=== PATIENT | male | born 1950 | race Two or more races ===

== ENCOUNTER 2019-07-19 07:21 | Inpatient (IN) | payer MEDICARE ==
[2019-07-19 07:39] LABS: HCT 42.8 % (39.0-53.0); HGB 14.2 gm/dL (13.0-17.5); MCH 31.5 pg (25.0-35.0); MCHC 33.2 g/dL (31.0-37.0); MCV 94.8 fL (80.0-100.0); Mean Platelet Volume 9.9; Platelet Count 179 k/uL (150-450); RBC 4.52 m/uL (4.30-5.90); WBC 5.4 k/uL (3.8-10.6)
--- NOTE | 2019-07-19 07:41 | ED ---
General Adult HPI - General Stated complaint: Stemi Time Seen by Provider: 07/19/19 07:21 Source: patient, RN notes reviewed, old records reviewed - History of Present Illness Initial comments: This is a 69-year-old male who presents emergency department after having gone to [facility]. They Transferred the patient to us because they were concerned that the patient was having a heart attack. Patient states the pain started about 4:30 this morning and he arrived at [facility] about 6:00 in the morning. Patient does state he has had intermittent chest pain for a week. Patient states he has no medical problems. Patient states the pain started in his chest and he was mildly short of breath he denied any radiation of the pain to me. Patient denied any nausea or diaphoresis. Patient is extremely anxious and tearful and it is somewhat difficult to get a history because he is upset. Patient does deny any abdominal pain. Patient denies headache patient denies lightheadedness or dizziness. Review of Systems ROS Statement: Those systems with pertinent positive or pertinent negative responses have been documented in the HPI. ROS Other: All systems not noted in ROS Statement are negative. General Exam - General Exam Comments Initial Comments: GENERAL: Patient is well-developed and well-nourished. Patient is nontoxic and well- hydrated and is in mild distress. ENT: Neck is soft and supple. No significant lymphadenopathy is noted. Oropharynx is clear. Moist mucous membranes. Neck has full range of motion without eliciting any pain. EYES: The sclera were anicteric and conjunctiva were pink and moist. Extraocular movements were intact and pupils were equal round and reactive to light. Eyelids were unremarkable. PULMONARY: Unlabored respirations. Good breath sounds bilaterally. No audible rales rhonchi or wheezing was noted. CARDIOVASCULAR: There is a regular rate and rhythm without any murmurs gallops or rubs. ABDOMEN: Soft and nontender with normal bowel sounds. SKIN: Skin is clear with no lesions or rashes and otherwise unremarkable. NEUROLOGIC: Patient is alert and oriented x3. Cranial nerves II through XII are grossly intact. Motor and sensory are also intact. Normal speech, volume and content. Symmetrical smile. MUSCULOSKELETAL: Normal extremities with adequate strength and full range of motion. LYMPHATICS: No significant lymphadenopathy is noted PSYCHIATRIC: Normal psychiatric evaluation. Medical Decision Making - Medical Decision Making EKG shows normal sinus rhythm at 70 bpm HI interval 242 QRS is 76 QT interval 370 QTC is 408. Patient's EKG shows ST segment elevation in V1 and V2 V3 V4. Patient has what appears to be a STEMI. I called a STEMI overhead and Dr. Link came down to see the patient. Patient already received aspirin was on a nitro drip and on heparin. Patient was still having some pain. I spoke with Dr. Nolen and she agreed to accept the patient and the patient was taken to the [facility]. Disposition Clinical Impression: STEMI (ST elevation myocardial infarction) Disposition: ADMITTED IP TO THIS HOSP Is patient prescribed a controlled substance at d/c from ED?: No Referrals: Mazin Pino MD [Primary Care Provider] - 1-2 days Time of Disposition: 07:43
[2019-07-19] MEDS ORDERED: HYDROmorphone 1 MG/ML 1 ML SYRINGE IVP ONE (07:45)
[2019-07-19] MEDS ORDERED: SODIUM CHLORIDE 0.9% 1,000 ML IV ONE (07:45)
[2019-07-19] MEDS ORDERED: NITROGLYCERIN-D5W PMX 50 MG in DEXTROSE/WATER 1 250ML.BAG IV ONE (07:45)
[2019-07-19 07:47] LABS: ALT 10 U/L (4-49); AST 23 U/L (17-59); African American GFR (CKD) >90 (>60 ml/min/1.73 sqM); Albumin 3.9 g/dL (3.5-5.0); Alkaline Phosphatase 116 U/L (38-126); Anion Gap 5 mmol/L; Blood Urea Nitrogen 15 mg/dL (9-20); Carbon Dioxide 27 mmol/L (22-30); Chloride 107 mmol/L (98-107); Glucose 89 mg/dL (74-99); Non-African American GFR(CKD) 86 (>60 ml/min/1.73 sqM); Potassium 4.3 mmol/L (3.5-5.1); Sodium 139 mmol/L (137-145); Total Bilirubin 0.3 mg/dL (0.2-1.3); Total Protein 7.1 g/dL (6.3-8.2)
[2019-07-19] MEDS ORDERED: MIDAZOLAM 2 MG/2 ML VIAL IV ONE (07:47)
[2019-07-19] MEDS ORDERED: LIDOCAINE 1% INJ 10MG/ML (20 ML MDV) SQ ONE (07:47)
[2019-07-19] MEDS ORDERED: BIVALIRUDIN BOLUS 250 MG/50 ML IV ONE (07:58)
[2019-07-19] MEDS ORDERED: BIVALIRUDIN 250 MG in SODIUM CHLORIDE 0.9% 50 ML IV ONE (08:00)
[2019-07-19] MEDS ORDERED: TICAGRELOR 90 MG TAB PO ONE (08:00)
[2019-07-19 08:07] LABS: INR 0.9 (<1.2); Prothrombin Time 9.6 sec (9.0-12.0)
[2019-07-19 08:10] LABS: Partial Thromboplastin Time 127.8 sec (22.0-30.0)
[2019-07-19 08:12] LABS: Creatine Kinase MB 2.1 ng/mL (0.0-2.4)
[2019-07-19] MEDS ORDERED: IOPAMIDOL-370 125ML BTL INJ ONE (08:14)
[2019-07-19] MEDS ORDERED: NITROGLYCERIN 1000MCG/10ML SYRINGE INTRACORON ONE (08:18)
[2019-07-19 08:28] LABS: Troponin I 0.234 ng/mL (0.000-0.034)
[2019-07-19] MEDS ORDERED: IOPAMIDOL-370 100ML BTL INJ ONE (08:31)
[2019-07-19] MEDS ORDERED: NITROGLYCERIN SL TABS 0.4 MG TAB SUBLINGUAL PRN (08:46)
[2019-07-19] MEDS ORDERED: ATROPINE SULFATE 0.1 MG/ML 10ML SYRINGE IV PRN (08:46)
[2019-07-19] MEDS ORDERED: RX INFO: IV CONTRAST WAS GIVEN 1 EACH MISC MISCELLANE PRN (08:46)
[2019-07-19] MEDS ORDERED: MAG HYDROX/AL HYDROX/SIMETH 30 ML CUP PO PRN (08:46)
[2019-07-19] MEDS ORDERED: ZOLPIDEM 5 MG TAB PO PRN (08:46)
[2019-07-19] MEDS ORDERED: SODIUM CHLORIDE 0.9% 1,000 ML IV SCH (09:00)
[2019-07-19 09:16] LABS: Glucose,Whole Blood 130 mg/dL (75-99)
[2019-07-19] MEDS: ASPIRIN 81 MG PO SCH (09:32)
[2019-07-19] MEDS: LISINOPRIL 2.5 MG TAB PO SCH ×2 (09:32→19:45)
[2019-07-19] MEDS: METOPROLOL TARTRATE 25 MG TAB PO SCH ×2 (09:32→19:45)
[2019-07-19] MEDS: SPIRONOLACTONE 25 MG TAB PO SCH (09:32)
[2019-07-19 10:06] VITALS: BMI 25.7
--- NOTE | 2019-07-19 10:16 | CONS ---
CONSULTATION CHIEF COMPLAINT: Chest pain. Junior is a 69-year-old gentleman with history of hypertension that was not treated and smoking, who presented to [facility] Emergency Room with chest pain that started around 4 30 this morning. He was severely hypertensive and had EKG changes of acute myocardial ischemia, was transferred to the emergency room at [facility] where I evaluated him. His EKG here showed acute ST-segment elevation in the precordial leads suggestive of an acute anterior wall myocardial infarction. I advised the patient to undergo emergent cardiac catheterization with a view to performing angioplasty. The patient was explained of risks, benefits and alternatives. PAST MEDICAL HISTORY: Significant for hypertension. MEDICATIONS: None. ALLERGIES: None. FAMILY HISTORY: He denies any. SOCIAL HISTORY: Significant for smoking, there is no history of EtOH abuse or drug abuse. REVIEW OF SYSTEMS: HEENT: Unremarkable. CARDIAC: As described above. RESPIRATORY: As described above. GI: Negative. GENITOURINARY: Negative. ALLERGY/IMMUNOLOGY: Negative. SKIN: Negative. MUSCULOSKELETAL: Negative. ENDOCRINE: Negative. ONCOLOGICAL: Negative [facility] PHYSICIAN: Negative. PHYSICAL EXAM: Patient appears hemodynamically stable. He is anxious. Blood pressure is elevated at 150/110, heart rate is 89 beats per minute. There is no jugular venous distention. Carotid upstroke is normal. There is no bruit. Chest exam reveals good air entry bilaterally. Heart exam reveals first and second heart sounds. No gallop. No murmur. No rub. Abdomen is soft, nontender. Exam of extremities did not reveal any edema. Peripheral pulses are felt. EKG shows acute ST-segment elevation in the anterior leads. LABORATORY DATA: Labs are pending at this time. ASSESSMENT: 1. Acute anterior wall myocardial infarction. 2. Severe uncontrolled hypertension. PLAN: Patient will undergo emergent cardiac cath with a view to performing angioplasty. CARDIAC CATHETERIZATION: INDICATION: Acute anterior wall myocardial infarction. PROCEDURE NOTE: After obtaining informed consent, left heart catheterization and coronary angiogram were performed via the right femoral artery using standard Domenico catheters. Patient tolerated the procedure well without any obvious immediate complication. FINDINGS: HEMODYNAMICS: Central aortic pressure is 150/100. Left ventricular hemodynamics could be obtained after the angioplasty. ANGIOGRAPHIC DATA: LEFT MAIN CORONARY ARTERY: Left main coronary artery appears calcified. There is a mild atherosclerotic plaque in the ostial portion of the left main, divides into left anterior descending coronary artery and circumflex coronary artery. LEFT ANTERIOR DESCENDING CORONARY ARTERY: LAD is totally occluded in its midportion. There is a large diagonal branch, circumflex coronary artery is a dominant vessel. There is a moderate atherosclerotic plaque in its proximal portion. Right coronary artery is a small caliber nondominant vessel that shows a mild atherosclerotic plaque in the proximal portion. CONCLUSION: Acute occlusion of the mid LAD. PLAN: Patient will undergo angioplasty of the same. MMODL / IJN: [id number] /
--- NOTE | 2019-07-19 10:22 | LTR ---
DATE OF SERVICE: 07/19/2019 RE: Junior Casillas Dear Pat: I performed cardiac catheterization on Junior Casillas. A detailed catheterization note was sent for your personal records. In brief, Junior is a 69-year-old gentleman with you as his primary care physician, came to the hospital with acute anterior wall myocardial infarction and underwent emergent cardiac catheterization that revealed an acutely occluded LAD. He will undergo angioplasty of the same. Thank you giving me the privilege of taking care of this pleasant gentleman. Sincerely, MD JHON Rogers / NIRANJAN: [id number] /
--- NOTE | 2019-07-19 10:30 | PTCA ---
PERCUTANEOUSTRANS CORORONARY ANGIOGRAPHY Mr. Casillas is a 69-year-old male with history of chronic tobacco use, who presented to [facility] with an acute anterior wall myocardial infarction. He was evaluated by Dr. Schofield and underwent cardiac catheterization that revealed a totally occluded mid LAD. In view of that, recommendation made regarding angioplasty and stenting. The procedures, risks, and complication were discussed with the patient who is in full understanding and agreement. PROCEDURE: A 6-Macanese FR4 guiding catheter introduced into the system after cannulating the left main. A 0.014 balanced medium weight J-wire was advanced across the lesion, positioned distally, then a 2.5 x 12 mm Trek balloon was advanced and multiple inflation at 8 atmospheres were done. From that, the balloon was removed and a 3.5 x 38 mm Xience Guillermina stent was deployed, postdilated at 16 atmospheres. Following that, the balloon was removed and a 0.014 BMW wire was introduced in the diagonal branch. That wire was subsequently removed and a 0.014 Whisper J-wire was advanced into the diagonal branch. Subsequently, a 2.5 x 12 mm Trek balloon was advanced and two inflations at the bifurcation of the diagonal branch through the diagonal branch were done at a maximum of 8 atmospheres. Following that, the balloon was removed and a 4.0 x 12 mm NC Trek balloon was advanced in the proximal segment of the stent and 2 inflations at 12 atmospheres was done. After the last inflation, after appropriate wait, the balloon and the guidewire were withdrawn back in the guiding catheter. Images were obtained and repeated. Those images reveal stable successful stenting. At that point, the guiding catheter, the balloon and guidewire were removed and a 6-Macanese tight pigtail catheter introduced into the left ventricle and pressures were calculated. Following that, catheter and sheath were removed. Hemostasis was obtained with deployment of an Angio-Seal. There was no immediate complication. Patient was returned to his room in stable condition. Of note, the patient had almost total resolution of his chest discomfort with improvement in his ST-segment elevation. He received Angiomax per protocol as well as oral loading dose of Brilinta. RESULTS: Successful stenting of the mid LAD with reduction of stenosis from 100% to 0%. RECOMMENDATION: Patient will be continued on aspirin, Brilinta, beta chris, MYA inhibitors and statin. The importance of dual antiplatelet treatment were discussed with the patient and his family and they are in full understanding and agreement. Duration of procedure is 30 minutes. MMODL / IJN: [id number] /
[2019-07-19 11:54] LABS: Cholesterol 183 mg/dL (<200); HDL Cholesterol 50 mg/dL (40-60); LDL Cholesterol,Calculated 95 mg/dL (0-99); Triglycerides 191 mg/dL (<150)
[2019-07-19] MEDS: ATORVASTATIN 80 MG TAB PO SCH (19:44)
[2019-07-19] MEDS: TICAGRELOR 90 MG TAB PO SCH (19:45)
--- NOTE | 2019-07-19 22:04 | P.HPIM ---
History of Present Illness H&P Date: 07/19/19 Chief Complaint: Acute ST RI, CAD post PCI and stent placement, hypertension, hyperlipidemia 69-year-old male one of Dr. otto patient with past medical history of prostate cancer elevated blood pressure and chronic smoking who apparently has not felt well the last 2 days presented to the emergency department at 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 He ended up coming to [facility] department mildly elevated troponin was found his EKG showed ST elevation patient was transfer from the emergency department [facility] to the emergency department at [facility] for ST RI protocol was established patient was taken to the electrical laboratory technician had the heart cath with Dr. Link who found subtotal occlusion of the LAD ended up calling Dr. Lucero who performed successful PCI and stent placement of the LAD and start the patient on aspirin, purulent, beta chris, MYA inhibitor and high dose of statin patient was admitted to the ICU after his procedure. Review of Systems CONSTITUTIONAL: Well-developed no acute respiratory distress. EYES: No icterus sclerae, no conjunctivitis. EARS, NOSE, MOUTH, THROAT, and FACE: No sore throat, lymphadenopathy, carotid bruits or deformity. RESPIRATORY: Slight shortness of breath no cough wheezes. CARDIOVASCULAR: Positive chest pain and angina with mild orthopnea and PND. GASTROINTESTINAL: No Abd pain, Nausea or vomiting, no Diarrhea or constipation, No GI Bleed, no distention or masses. GENITOURINARY: Negative for Hematuria or UTI, no kidney stones. INTEGUMENT/BREAST: Negative for any muscular injury with mild osteoarthritis.. HEMATOLOGIC/LYMPHATIC: Negative for bleed or purpura. MUSCULOSKELTAL: Negative for Myalgia or arthralgia. NEURLOGICAL: No LOC, Sz or syncope, blurred vision dizziness or abnormality.. BEHAVIORAL/PSYCH: Negative. ENDOCRINE: Negative. Past Medical History Past Medical History: Cancer Additional Past Medical History / Comment(s): prostate cancer approx 2009 History of Any Multi-Drug Resistant Organisms: None Reported Past Surgical History: No Surgical Hx Reported Past Anesthesia/Blood Transfusion Reactions: No Reported Reaction Past Psychological History: No Psychological Hx Reported Smoking Status: Current every day smoker Past Alcohol Use History: None Reported Past Drug Use History: None Reported - Past Family History Mother Family Medical History: Diabetes Mellitus Father History Unknown: Yes Medications and Allergies Home Medications Medication Instructions Recorded Confirmed Type Albuterol Inhaler [Ventolin Hfa 2 puff INHALATION RT-QID PRN 07/19/19 07/19/19 History Inhaler] Ticagrelor [Brilinta] 90 mg PO BID #60 tab 07/19/19 Rx Allergies Allergy/AdvReac Type Severity Reaction Status Date / Time No Known Allergies Allergy Verified 07/19/19 09:23 Physical Exam Vitals: Vital Signs Temp Pulse Pulse Resp BP Pulse Ox 07/19/19 19:00 72 27 H 129/82 96 07/19/19 18:00 65 23 126/91 95 07/19/19 17:00 66 13 113/74 95 07/19/19 16:00 97.7 F 58 L 23 122/79 94 L 07/19/19 15:35 17 07/19/19 15:00 62 25 H 105/62 95 07/19/19 14:00 61 19 129/80 93 L 07/19/19 13:10 56 L 15 129/80 95 07/19/19 13:00 57 L 12 132/92 96 07/19/19 12:50 56 L 11 L 132/92 95 07/19/19 12:40 61 16 132/92 97 07/19/19 12:31 97.7 F 15 07/19/19 12:30 26 H 132/92 95 07/19/19 12:20 71 17 132/92 96 07/19/19 12:10 59 L 27 H 132/92 97 07/19/19 12:00 97.7 F 57 L 19 141/93 96 07/19/19 11:50 71 20 141/93 95 07/19/19 11:40 53 L 3 L 141/93 97 07/19/19 11:30 61 6 L 141/93 97 07/19/19 11:20 61 22 141/93 97 07/19/19 11:10 61 29 H 141/93 97 07/19/19 11:00 61 7 L 144/92 98 07/19/19 10:50 64 18 144/92 97 07/19/19 10:40 56 L 8 L 144/92 98 07/19/19 10:30 55 L 12 144/92 97 07/19/19 10:20 62 16 144/92 97 07/19/19 10:10 68 27 H 144/92 98 07/19/19 10:00 63 20 150/98 96 07/19/19 09:50 65 14 150/98 97 07/19/19 09:40 60 10 L 150/98 97 07/19/19 09:30 68 12 150/98 94 L 07/19/19 09:20 60 11 L 150/98 97 07/19/19 09:15 24 97 07/19/19 07:34 75 16 161/99 99 07/19/19 07:32 72 07/19/19 07:28 97.0 F L 71 20 158/106 99 Intake and Output 07/19/19 07/19/19 07/19/19 06:59 14:59 22:59 Intake Total 1125 550 Output Total 200 480 Balance 925 70 Intake: IV 125 Intake, IV Titration 300 200 Amount Sodium Chloride 0.9% 1, 300 200 000 ml @ 100 mls/hr IV . [facility]H [facility] Rx#:[id number] Oral 700 350 Blood Product 0 Output: Urine 200 480 Other: # Voids 1 1 Weight 70.307 kg General Appearance: Alert, cooperative, no distress, appears stated age. Neck HEENT: Supple, no lymphadenopathy, no thyroid enlargement, no carotid bruits. Lungs: Clear to auscultation without crackles or wheezes no rhonchi, no deformity. Chest Wall: Chest wall normal expansion with deep inspiration no tenderness and no deformity was found on exam, no costochondral pain or discomfort. Heart: Regular rate and rhythm, S1, S2 normal, no murmur, rub or gallop. Back: Symmetric, no curvature, ROM normal, no CVA tenderness. Abdomen: Soft, non-tender, bowel sounds active all four quadrants, no masses, no organomegaly. Extremities: Extremities normal, atraumatic, no cyanosis or edema. Pulses: 2+ and symmetric. Skin: Skin color, texture, tugor normal, no rashes or lesions. Neurologic: Alert oriented x3 cranial nerves II through XII intact, no motor deficit, no abnormal balance or gait. Results CBC & Chem 7: 07/19/19 07:26 07/19/19 07:26 Labs: Abnormal Lab Results - Last 24 Hours (Table) 07/19/19 07/19/19 07/19/19 Range/Units 07:26 07:26 07:26 APTT 127.8 H* (22.0-30.0) sec POC Glucose (mg/dL) (75-99) mg/dL Troponin I 0.234 H* (0.000-0.034) ng/mL Triglycerides 191 H (<150) mg/dL 07/19/19 07/19/19 07/19/19 Range/Units 09:14 13:16 18:59 APTT (22.0-30.0) sec POC Glucose (mg/dL) 130 H (75-99) mg/dL Troponin I 40.100 H* 27.500 H* (0.000-0.034) ng/mL Triglycerides (<150) mg/dL Thrombosis Risk Factor Assmnt - DVT/VTE Prophylaxis DVT/VTE Prophylaxis: Mechanical Prophylaxis ordered - Choose All That Apply Any of the Below Risk Factors Present?: Yes Each Factor Represents 1 point: Acute RI, Medical pt on bed rest Each Risk Factor Represents 2 Points: Age 61-74 years Thrombosis Risk Factor Assessment Total Risk Factor Score: 4 Thrombosis Risk Factor Assessment Level: Moderate Risk Assessment and Plan Assessment: 1 acute anterior wall myocardial infarction ST elevation: Patient was hospitalized was giving nitro aspirin antiplatelet agent ended up going to the electrical laboratory technician had angioplasty of the LAD. 2 post PCI and stent placement of the LAD successful procedure done patient is doing well and more stable. 3 severe uncontrolled hypertension: Patient was started on beta chris and MYA inhibitor we will add product like Norvasc as needed for systolic above 160/90. 4 history of reactive airway/asthma: Remain on Ventolin on as needed basis. 5 history of prostate cancer: Post prostatectomy has been in remission and doing well. 6 chronic history of nicotine dependency and smoking: Patient will be on nicotine patch for now. 7 hyperlipidemia: Was start patient on high dose of statin with atorvastatin 80 mg daily. 8 GI prophylaxis: Patient will be on Pepcid. 9 DVT prophylaxis: Continue early mobilization and knee-high PHAN hose. CODE STATUS: Full code. Admit patient to inpatient service for more than 2 nights.
[2019-07-20 05:26] LABS: Basophils # (A) 0.1 k/uL (0-0.2); Basophils % (A) 1 %; Eosinophils # (A) 0.1 k/uL (0-0.7); Eosinophils % (A) 2 %; HCT 43.8 % (39.0-53.0); HGB 14.1 gm/dL (13.0-17.5); Lymphocytes # (A) 1.9 k/uL (1.0-4.8); Lymphocytes % (A) 23 %; MCH 30.2 pg (25.0-35.0); MCHC 32.1 g/dL (31.0-37.0); Mean Platelet Volume 9.5; Monocytes # (A) 0.5 k/uL (0-1.0); Monocytes % (A) 6 %; Neutrophils # (A) 5.4 k/uL (1.3-7.7); Neutrophils % (A) 66 %; Platelet Count 180 k/uL (150-450); RBC 4.66 m/uL (4.30-5.90); RDW 12.1 % (11.5-15.5); WBC 8.1 k/uL (3.8-10.6)
[2019-07-20 05:37] LABS: ALT 19 U/L (4-49); AST 96 U/L (17-59); African American GFR (CKD) >90 (>60 ml/min/1.73 sqM); Albumin 3.5 g/dL (3.5-5.0); Alkaline Phosphatase 66 U/L (38-126); Anion Gap 4 mmol/L; Blood Urea Nitrogen 15 mg/dL (9-20); Carbon Dioxide 24 mmol/L (22-30); Chloride 108 mmol/L (98-107); Glucose 110 mg/dL (74-99); Non-African American GFR(CKD) 87 (>60 ml/min/1.73 sqM); Potassium 4.4 mmol/L (3.5-5.1); Sodium 136 mmol/L (137-145); Total Bilirubin 0.6 mg/dL (0.2-1.3); Total Protein 6.3 g/dL (6.3-8.2)
--- NOTE | 2019-07-20 07:44 | P.PN ---
Subjective Progress Note Date: 07/20/19 Principal diagnosis: Acute anterior ST elevation myocardial infarction This is a 69-year-old gentleman who was was diagnosed with acute anterior ST patient myocardial infarction and underwent an emergent heart catheterization and stenting of the LAD. The procedure was performed from the right groin. The patient was seen today, July 192019. He is asymptomatic from a cardi ovascular standpoint of view. Hemodynamically he is a stapled beside margin a low blood pressure. The right groin is soft and nontender and without any bruises. He is on dual antiplatelet therapy along with high intensity statin. An echocardiogram was performed and we'll follow-up on that. From the cardiac vascular standpoint overview, the patient can be transferred to the floor. Objective - Vital Signs Vital signs: Vital Signs Temp 98.1 F 07/20/19 04:00 Pulse 76 07/20/19 07:00 Resp 14 07/20/19 07:00 BP 95/61 07/20/19 07:00 Pulse Ox 95 07/20/19 07:00 Intake & Output 07/19/19 07/20/19 07/20/19 18:59 06:59 18:59 Intake Total 1675 240 Output Total 680 1475 0 Balance 995 -1235 0 Weight 70.307 kg 70.9 kg Intake: IV 125 Intake, IV Titration 500 Amount Sodium Chloride 0.9% 1, 500 000 ml @ 100 mls/hr IV . Q10H [facility] Rx#:[id number] Oral 1050 240 Blood Product 0 Output: Urine 680 1475 0 Other: # Voids 1 - Constitutional General appearance: Present: no acute distress - Respiratory Respiratory: bilateral: CTA - Cardiovascular Rhythm: regular Heart sounds: normal: S1, S2 - Labs CBC & Chem 7: 07/20/19 04:51 07/20/19 04:50 Labs: Abnormal Lab Results - Last 24 Hours (Table) 07/19/19 07/19/19 07/19/19 Range/Units 07:26 07:26 07:26 APTT 127.8 H* (22.0-30.0) sec Sodium (137-145) mmol/L Chloride (98-107) mmol/L Glucose (74-99) mg/dL POC Glucose (mg/dL) (75-99) mg/dL AST (17-59) U/L Troponin I 0.234 H* (0.000-0.034) ng/mL Triglycerides 191 H (<150) mg/dL 07/19/19 07/19/19 07/19/19 Range/Units 09:14 13:16 18:59 APTT (22.0-30.0) sec Sodium (137-145) mmol/L Chloride (98-107) mmol/L Glucose (74-99) mg/dL POC Glucose (mg/dL) 130 H (75-99) mg/dL AST (17-59) U/L Troponin I 40.100 H* 27.500 H* (0.000-0.034) ng/mL Triglycerides (<150) mg/dL 07/20/19 Range/Units 04:50 APTT (22.0-30.0) sec Sodium 136 L (137-145) mmol/L Chloride 108 H (98-107) mmol/L Glucose 110 H (74-99) mg/dL POC Glucose (mg/dL) (75-99) mg/dL AST 96 H (17-59) U/L Troponin I (0.000-0.034) ng/mL Triglycerides (<150) mg/dL Assessment and Plan Assessment: Assessment #[address] patient myocardial infarction #2 status post PCI of the LAD Plan #1 continue the current medical regimen #2 continue dual antiplatelet therapy #3 the patient can be transferred to the floor #4 follow-up on the echocardiogram
[2019-07-20] MEDS: ASPIRIN 81 MG PO SCH (08:22)
[2019-07-20] MEDS: SPIRONOLACTONE 25 MG TAB PO SCH (08:22)
[2019-07-20] MEDS: METOPROLOL TARTRATE 25 MG TAB PO SCH ×2 (08:22→20:35)
[2019-07-20] MEDS: FAMOTIDINE 20 MG TAB PO SCH (08:22)
[2019-07-20] MEDS: LISINOPRIL 2.5 MG TAB PO SCH ×2 (08:23→20:35)
[2019-07-20] MEDS: TICAGRELOR 90 MG TAB PO SCH ×2 (08:24→20:35)
[2019-07-20] MEDS: NICOTINE 14MG/24HR PATCH TRANSDERM SCH (08:26)
--- NOTE | 2019-07-20 10:30 | ECHOF ---
Referral Reason:mo MEASUREMENTS -------- HEIGHT: 165.1 cm WEIGHT: 70.3 kg BP: 161/99 RVIDd: 4.0 cm (< 3.3) IVSd: 1.3 cm (0.6 - 1.1) LVIDd: 3.5 cm (3.9 - 5.3) LVPWd: 1.2 cm (0.6 - 1.1) IVSs: 1.4 cm LVIDs: 3.1 cm LVPWs: 1.5 cm LAESV Index (A-L): 11.59 ml/m Ao Diam: 3.4 cm (2.0 - 3.7) AV Cusp: 2.3 cm (1.5 - 2.6) LA Diam: 3.4 cm (2.7 - 3.8) MV EXCURSION: 20.499 mm (> 18.000) MV EF SLOPE: 219 mm/s (70 - 150) EPSS: 0.8 cm MV E Best: 0.46 m/s MV DecT: 226 ms MV A Best: 0.67 m/s MV E/A Ratio: 0.69 RAP: 5.00 mmHg RVSP: 22.70 mmHg FINDINGS -------- Sinus rhythm. This was a technically difficult study with suboptimal apical views. Lying flat post cath. The left ventricular size is normal. There is mild concentric left ventricular hypertrophy. There is severe global hypokinesis of LV . Overall left ventricular systolic function is severely impair ed with, an EF between 25 - 30 %. Mitral Doppler inflow pattern suggests diastolic filling abnormal ity {E/E'}. The right ventricle is moderately enlarged. Normal LA size by volume 22+/-6 ml/m2. The right atrial size is normal. Lumason used Interatrial and interventricular septum intact. The aortic valve was not well visualized. There is no evidence of aortic regurgitation. There is no evidence of aortic stenosis. There is trace mitral regurgitation. Mild tricuspid regurgitation present. There is no evidence of pulmonary hypertension. The right v entricular systolic pressure, as measured by Doppler, is 22.70mmHg. The pulmonic valve was not well visualized. There is no pulmonic regurgitation present. The aortic root size is normal. IVC Not well visulized. There is no pericardial effusion. CONCLUSIONS -------- 1. Sinus rhythm. 2. This was a technically difficult study with suboptimal apical views. 3. Lying flat post cath. 4. The left ventricular size is normal. 5. There is mild concentric left ventricular hypertrophy. 6. There is severe global hypokinesis of LV . 7. Overall left ventricular systolic function is severely impaired with, an EF between 25 - 30 %. 8. Mitral Doppler inflow pattern suggest diastolic filling abnormality {E/E'}. 9. The right ventricle is moderately enlarged. 10. Normal LA size by volume 22+/-6 ml/m2. 11. The right atrial size is normal. 12. Lumason used 13. Interatrial and interventricular septum intact. 14. The aortic valve was not well visualized. 15. There is no evidence of aortic regurgitation. 16. There is no evidence of aortic stenosis. 17. There is trace mitral regurgitation. 18. Mild tricuspid regurgitation present. 19. There is no evidence of pulmonary hypertension. 20. The right ventricular systolic pressure, as measured by Doppler, is 22.70mmHg. 21. The pulmonic valve was not well visualized. 22. There is no pulmonic regurgitation present. 23. The aortic root size is normal. 24. IVC Not well visulized. 25. There is no pericardial effusion. PL[employer]PER[employer] VICE PRESIDENT: Prema Mathew RDCS
--- NOTE | 2019-07-20 12:43 | P.PN ---
Subjective Progress Note Date: 07/20/19 69-year-old male one of Dr. 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 Link who found subtotal occlusion of the LAD ended up calling Dr. Lucero who performed successful PCI and stent placement of the LAD and start the patient on aspirin, purulent, beta chris, MYA inhibitor and high dose of statin patient was admitted to the ICU after his procedure. 07/19: Patient denies having any chest pain, shortness of breath, lightheadedness or dizziness. Discussed in detail the need for smoking cessation with the patient. Patient was seen this morning by Dr. Arce and he has cleared the patient transferred to the cardiac stepdown unit. Echocardiogram has been done which revealed EF of 25-30% with severe global hypokinesia of the LV. Mild concentric left ventricular hypertrophy, trace mitral regurgitation, no pulmonary hypertension, mild tricuspid regurgitation. He has been afebrile, heart rate 68, blood pressure 129/73, pulse ox 95% on room air. Repeat blood work reveals CBC unremarkable, sodium 136, potassium 4.4, chloride 108, BUN 15 creatinine 0.91. Blood sugar 110. AST is 96. Triglycerides 191, cholesterol 183, LDL 95, HDL 50. Anticipate possible discharge home tomorrow. Objective - Vital Signs Vital signs: Vital Signs Temp 98.1 F 07/20/19 04:00 Pulse 76 07/20/19 07:00 Resp 14 07/20/19 07:00 BP 95/61 07/20/19 07:00 Pulse Ox 95 07/20/19 07:00 Intake & Output 07/19/19 07/20/19 07/20/19 18:59 06:59 18:59 Intake Total 1675 240 Output Total 680 1475 0 Balance 995 -1235 0 Weight 70.307 kg 70.9 kg Intake: IV 125 Intake, IV Titration 500 Amount Sodium Chloride 0.9% 1, 500 000 ml @ 100 mls/hr IV . Q10H KENNY Rx#:[id number] Oral 1050 240 Blood Product 0 Output: Urine 680 1475 0 Other: # Voids 1 - Exam Review of Systems CONSTITUTIONAL: Well-developed no acute respiratory distress. EYES: No icterus sclerae, no conjunctivitis. EARS, NOSE, MOUTH, THROAT, and FACE: No sore throat, lymphadenopathy, carotid bruits or deformity. RESPIRATORY: Denies shortness of breath no cough wheezes. CARDIOVASCULAR: Denies chest pain and angina denies orthopnea and PND. No lightheadedness, no dizziness. GASTROINTESTINAL: No Abd pain, Nausea or vomiting, no Diarrhea or constipation, No GI Bleed, no distention or masses. GENITOURINARY: Negative for Hematuria or UTI, no kidney stones. INTEGUMENT/BREAST: Negative for any muscular injury with mild osteoarthritis.. HEMATOLOGIC/LYMPHATIC: Negative for bleed or purpura. MUSCULOSKELTAL: Negative for Myalgia or arthralgia. NEURLOGICAL: No LOC, Sz or syncope, blurred vision dizziness or abnormality.. BEHAVIORAL/PSYCH: Negative. ENDOCRINE: Negative. Physical Examination General Appearance: Alert, cooperative, no distress, appears stated age. Patient is resting this event appears to be comfortable and in no acute distress. Neck HEENT: Supple, no lymphadenopathy, no thyroid enlargement, no carotid bru its. Lungs: Clear to auscultation without crackles or wheezes no rhonchi, no deformity. Chest Wall: Chest wall normal expansion with deep inspiration no tenderness and no deformity was found on exam, no costochondral pain or discomfort. Heart: Regular rate and rhythm, S1, S2 normal, no murmur, rub or gallop. Back: Symmetric, no curvature, ROM normal, no CVA tenderness. Abdomen: Soft, non-tender, bowel sounds active all four quadrants, no masses, no organomegaly. Extremities: Extremities normal, atraumatic, no cyanosis or edema. Pulses: 2+ and symmetric. Skin: Skin color, texture, tugor normal, no rashes or lesions. Neurologic: Alert oriented x3 cranial nerves II through XII intact, no motor deficit, no abnormal balance or gait. - Labs CBC & Chem 7: 07/20/19 04:51 07/20/19 04:50 Labs: Abnormal Lab Results - Last 24 Hours (Table) 07/19/19 07/19/19 07/19/19 Range/Units 07:26 07:26 09:14 Sodium (137-145) mmol/L Chloride (98-107) mmol/L Glucose (74-99) mg/dL POC Glucose (mg/dL) 130 H (75-99) mg/dL AST (17-59) U/L Troponin I 0.234 H* (0.000-0.034) ng/mL Triglycerides 191 H (<150) mg/dL 07/19/19 07/19/19 07/20/19 Range/Units 13:16 18:59 04:50 Sodium 136 L (137-145) mmol/L Chloride 108 H (98-107) mmol/L Glucose 110 H (74-99) mg/dL POC Glucose (mg/dL) (75-99) mg/dL AST 96 H (17-59) U/L Troponin I 40.100 H* 27.500 H* (0.000-0.034) ng/mL Triglycerides (<150) mg/dL Assessment and Plan Plan: 1 acute anterior wall myocardial infarction ST elevation status post angioplasty of the LAD. Continue aspirin 81 mg daily, Lipitor 80 mg daily, lisinopril 2.5 mg twice daily, Lopressor 25 mg twice daily, spironolactone 25 mg daily, Proventil 90 mg twice daily 2 post PCI and stent placement of the LAD successful procedure done patient is doing well and more stable. 3 severe uncontrolled hypertension: Patient was started on beta chris and MYA inhibitor. 4 history of reactive airway/asthma: Remain on Ventolin on as needed basis. 5 history of prostate cancer: Post prostatectomy has been in remission and doing well. 6 chronic history of nicotine dependency and smoking: Patient will be on nicotine patch for now. 7 hyperlipidemia: Was start patient on high dose of statin with atorvastatin 80 mg daily. 8 GI prophylaxis: Patient will be on Pepcid. 9 DVT prophylaxis: Continue early mobilization and knee-high PHAN hose. CODE STATUS: Full code. Discharge plan: Home on Tuesday Impression and plan of care have been directed as dictated by the signing physician. Joaquina Walker nurse practitioner acting as scribe for signing physician.
[2019-07-20] MEDS: ATORVASTATIN 80 MG TAB PO SCH (20:35)
[2019-07-21 02:09] VITALS: RESP 16
[2019-07-21 08:13] VITALS: BP 108/69; PULSE 73; TEMP 97.9
[2019-07-21] MEDS: LISINOPRIL 2.5 MG TAB PO SCH (08:15)
[2019-07-21] MEDS: FAMOTIDINE 20 MG TAB PO SCH (08:15)
[2019-07-21] MEDS: SPIRONOLACTONE 25 MG TAB PO SCH (08:15)
[2019-07-21] MEDS: TICAGRELOR 90 MG TAB PO SCH (08:15)
[2019-07-21] MEDS: METOPROLOL TARTRATE 25 MG TAB PO SCH (08:15)
[2019-07-21] MEDS: ASPIRIN 81 MG PO SCH (08:16)
[2019-07-21] MEDS: NICOTINE 14MG/24HR PATCH TRANSDERM SCH (08:16)
--- NOTE | 2019-07-21 08:18 | P.DS ---
Providers Date of admission: 07/19/19 07:44 Expected date of discharge: 07/21/19 Attending physician: Ann Nolen Consults: 07/19/19 08:46 Consult Physician Routine Consulting Provider: [facility] Consult Reason/Comments: Post Interventional patient Do you want consulting provider notified?: Already Contacted Primary care physician: Mazin Christie [facility] Course: 69-year-old male one of Dr. 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 Link who found subtotal occlusion of the LAD ended up calling Dr. Lucero who performed successful PCI and stent placement of the LAD and start the patient on aspirin, purulent, beta chris, MYA inhibitor and high dose of statin patient was admitted to the ICU after his procedure. 07/19: Patient denies having any chest pain, shortness of breath, lightheadedness or dizziness. Discussed in detail the need for smoking cessation with the patient. Patient was seen this morning by Dr. Arce and he has cleared the patient transferred to the cardiac stepdown unit. Echocardiogram has been done which revealed EF of 25-30% with severe global hypokinesia of the LV. Mild concentric left ventricular hypertrophy, trace mitral regurgitation, no pulmonary hypertension, mild tricuspid regurgitation. He has been afebrile, heart rate 68, blood pressure 129/73, pulse ox 95% on room air. Repeat blood work reveals CBC unremarkable, sodium 136, potassium 4.4, chloride 108, BUN 15 creatinine 0.91. Blood sugar 110. AST is 96. Triglycerides 191, cholesterol 183, LDL 95, HDL 50. Anticipate possible discharge home tomorrow. 07/20: Patient is seen today will he is ambulating in his room. He appears to be in no acute distress. He denies having any chest pain, lightheadedness dizziness, shortness of breath. His blood pressure has been on the lower side but seems to be tolerating that well. Patient is anxious to be discharged home. Again discussed need for smoking cessation. Prescriptions have been sent to his pharmacy and patient will be discharged home today in stable condition. Discharge diagnoses: 1 acute anterior wall myocardial infarction ST elevation status post angioplasty of the LAD. 2 post PCI and stent placement of the LAD. 3 severe uncontrolled hypertension. 4 history of reactive airway mild intermittent asthma. 5 history of prostate cancer: Post prostatectomy has been in remission and doing well. 6 chronic history of nicotine dependency and smoking 7 hyperlipidemia Discharge plan: Home Impression and plan of care have been directed as dictated by the signing physician. Joaquina Walker nurse practitioner acting as scribe for signing physician. Patient Condition at Discharge: Good Plan - Discharge Summary Discharge Rx Participant: Yes New Discharge Prescriptions: New Ticagrelor [Brilinta] 90 mg PO BID #60 tab Spironolactone [Aldactone] 25 mg PO DAILY #30 tab Aspirin 81 mg PO DAILY chew Nicotine 14Mg/24Hr Patch [Habitrol] 1 patch TRANSDERM DAILY #30 patch Atorvastatin [Lipitor] 80 mg PO HS #30 tab Metoprolol Tartrate [Lopressor] 25 mg PO BID #60 tab Nitroglycerin Sl Tabs [Nitrostat] 0.4 mg SUBLINGUAL Q5M PRN #25 tab PRN Reason: Chest Pain Famotidine [Pepcid] 20 mg PO DAILY tab Lisinopril [Zestril] 2.5 mg PO BID #60 tab Continue Albuterol Inhaler [Ventolin Hfa Inhaler] 2 puff INHALATION RT-QID PRN PRN Reason: Shortness Of Breath Discharge Medication List Albuterol Inhaler [Ventolin Hfa Inhaler] 2 puff INHALATION RT-QID PRN 07/19/19 [History] Ticagrelor [Brilinta] 90 mg PO BID #60 tab 07/19/19 [Rx] Aspirin 81 mg PO DAILY chew 07/21/19 [Rx] Atorvastatin [Lipitor] 80 mg PO HS #30 tab 07/21/19 [Rx] Famotidine [Pepcid] 20 mg PO DAILY tab 07/21/19 [Rx] Lisinopril [Zestril] 2.5 mg PO BID #60 tab 07/21/19 [Rx] Metoprolol Tartrate [Lopressor] 25 mg PO BID #60 tab 07/21/19 [Rx] Nicotine 14Mg/24Hr Patch [Habitrol] 1 patch TRANSDERM DAILY #30 patch 07/21/19 [Rx] Nitroglycerin Sl Tabs [Nitrostat] 0.4 mg SUBLINGUAL Q5M PRN #25 tab 07/21/19 [Rx] Spironolactone [Aldactone] 25 mg PO DAILY #30 tab 07/21/19 [Rx] Follow up Appointment(s)/Referral(s): Mazin Pino MD [Primary Care Provider] - 1 Week [facility] [Provider Group] - 1 Week Patient Instructions/Handouts: Cardiac Rehabilitation (GEN) Discharge Disposition: HOME SELF-CARE
--- NOTE | 2019-07-21 10:56 | P.PN ---
Subjective Mr. Casillas is doing well from a cardiac standpoint he denies any chest discomfort dizziness lightheadedness or palpitations He was evaluated this morning Blood pressure 186 9 mmHg Normal respirations Pulse rate in the 60s and 70s Afebrile 97.9F He underwent stenting to a totally occluded mid LAD on July 18 Severe LV dysfunction ejection fraction 25-30% Currently on aspirin atorvastatin lisinopril 2.5 mg twice daily spironolactone, metoprolol and Brilinta and aspirin On examination blood pressure in normal range Normal heart sounds no S3 gallop and no murmurs Lungs are clear Abdomen is soft Suggest Patient may go home from a chronic standpoint and see Dr. Schofield within week He does have severe LV dysfunction and his medications can be maximized as an outpatient as he is tolerating them If his LV function does not improve over the next 3 months despite maximum medical treatment he should be considered for a prophylactic ICD Objective - Vital Signs Vital signs: Vital Signs Temp 97.9 F 07/21/19 08:10 Pulse 73 07/21/19 08:13 Resp 16 07/21/19 08:13 BP 108/69 07/21/19 08:10 Pulse Ox 97 07/21/19 08:10 Intake & Output 07/20/19 07/21/19 07/21/19 18:59 06:59 18:59 Intake Total 1870 510 260 Output Total 550 500 600 Balance 1320 10 -340 Weight 66.5 kg Intake: IV 10 30 20 Invasive Line 1 10 Invasive Line 2 10 30 10 Oral 1860 480 240 Output: Urine 550 500 600 Other: Voiding Method Urinal Urinal Urinal # Voids 2 1 - Labs CBC & Chem 7: 07/20/19 04:51 07/20/19 04:50
== END 2019-07-21 14:05 | disposition home or self-care (01) | DRG 247 ==
LOC: EC 07:21 → 2SICU 07:44 → 3SCARD 07-20 10:07
PROVIDERS: ADMIT Family Medicine; ATTEND Family Medicine
PROC: 4A023N7 Measurement of Cardiac Sampling and Pressure, Left Heart, Percutaneous Approach (ICD-10-PCS; principal; 2019-07-19 07:33)
PROC: B2111ZZ Fluoroscopy of Multiple Coronary Arteries using Low Osmolar Contrast (ICD-10-PCS; principal; 2019-07-19 07:33)
PROC: 027034Z Dilation of Coronary Artery, One Artery with Drug-eluting Intraluminal Device, Percutaneous Approach (ICD-10-PCS; principal; 2019-07-19 07:33)
DX: I21.09 ST elevation (STEMI) myocardial infarction involving other coronary artery of anterior wall (principal); E78.5 Hyperlipidemia, unspecified; F17.200 Nicotine dependence, unspecified, uncomplicated; I11.9 Hypertensive heart disease without heart failure; I25.10 Atherosclerotic heart disease of native coronary artery without angina pectoris; J45.20 Mild intermittent asthma, uncomplicated; I25.82 Chronic total occlusion of coronary artery; Z79.02 Long term (current) use of antithrombotics/antiplatelets; Z85.46 Personal history of malignant neoplasm of prostate; Z83.3 Family history of diabetes mellitus; Z79.899 Other long term (current) drug therapy; Z79.82 Long term (current) use of aspirin; Z11.59 Encounter for screening for other viral diseases
CPT/HCPCS: 36415; 80053; 80061; 82550; 82553; 84484; 85025; 85027; 85610; 85730; 93005; 93306; 93458; 99285